=== PATIENT | female | born 1940 | race Caucasian/White ===

== ENCOUNTER 2020-08-01 17:12 | Emergency (ER) | payer MEDICARE, SELFPAY ==
[2020-08-01 17:23] VITALS: BP 118/104; PULSE 83; RESP 22; TEMP 36.7; O2SAT 93
--- NOTE | 2020-08-01 17:40 | ED.FEMALEGU ---
HPI - Female Genitourinary General Chief complaint: Urogenital-Female Stated complaint: Bladder infection Time Seen by Provider: 08/01/20 17:33 Source: patient and RN notes reviewed Mode of arrival: ambulatory Limitations: no limitations History of Present Illness HPI Narrative: Patient presents today complaining of a 2-day history of low back pain and urinary frequency. Denies dysuria, hematuria, abdominal pain. Reports history of frequent UTI. States her last UTI was a few months ago. Patient is chronically ill and Is on many medications. She does not have her allergy list and does not know any of her allergies. She does note that when she gets a UTI she is normally put on Macrobid, Because they have tried other medications in the past and this is the only one that works. MD elicited complaint: UTI Related Data Home Medications Medication Instructions Recorded Confirmed albuterol sulfate 2 puff INHALATION QID 08/01/20 08/01/20 buspirone 15 mg PO BID 08/01/20 08/01/20 furosemide 40 mg PO DAILY 08/01/20 08/01/20 gabapentin 300 mg PO TID 08/01/20 08/01/20 insulin lispro 8 unit SUBCUT ONCE 08/01/20 08/01/20 levothyroxine 125 mcg PO DAILY 08/01/20 08/01/20 losartan 100 mg PO DAILY 08/01/20 08/01/20 metformin 1,000 mg PO BID 08/01/20 08/01/20 metolazone 2.5 mg PO DAILY 08/01/20 08/01/20 metoprolol tartrate 50 mg PO DAILY 08/01/20 08/01/20 pantoprazole 40 mg PO HS 08/01/20 08/01/20 sertraline 100 mg PO DAILY 08/01/20 08/01/20 simvastatin 20 mg PO DAILY 08/01/20 08/01/20 theophylline 300 mg PO Q12H 08/01/20 08/01/20 torsemide 20 mg PO QAM 08/01/20 08/01/20 trazodone 150 mg PO HS 08/01/20 08/01/20 Allergies Allergy/AdvReac Type Severity Reaction Status Date / Time No Known Allergies Allergy Verified 08/01/20 17:33 Review of Systems Review of Systems: Narrative: CONSTITUTIONAL: Denies body aches, fever, chills, or sweats. EYES: Denies visual changes, redness, or discharge. ENT: Denies rhinorrhea, congestion, sore throat, or otalgia. CARDIOVASCULAR: Denies chest pain, palpitations, or edema. RESPIRATORY: Denies cough or dyspnea. GASTROINTESTINAL: Denies abdominal pain, nausea, vomiting, or diarrhea. GENITOURINARY: Denies dysuria or hematuria. +Frequency SKIN: Denies rash, itching, or wounds. MUSCULOSKELETAL: Denies joint pain, or myalgia. +Low back pain NEUROLOGIC: Denies headache, numbness, tingling, or weakness. PSYCH: Denies depression or anxiety. [facility] Past Medical History Medical History (Updated 08/01/20 @ 18:19 by Kristin Wahl, [facility], ) Anxiety COPD (chronic obstructive pulmonary disease) Diabetes GERD (gastroesophageal reflux disease) Hyperlipidemia Hypothyroidism Surgical History Surgical History (Updated 08/01/20 @ 18:19 by Kristin Wahl, [facility], ) H/O: hysterectomy History of mastectomy Family History Family History (Updated 12/21/11 @ 13:54 by DOCTOR UNKNOWN) Other Family history of malignant neoplasm of male breast Social History Social History Smoking status: Never smoker Alcohol intake: never Comments At time of signature, I have reviewed and agree with nursing past medical, surgical, social and family history unless otherwise noted. Please see nursing chart for further information. There is no relevant family history pertinent to the presenting complaint Exam Narrative: Exam Narrative: GENERAL: Chronically ill-appearing, Over-nourished, Ambulates with a walker. Wears home oxygen. HEAD: Normocephalic, atraumatic. EYES: EOMI. No redness or drainage. Conjunctivae normal. ENT: Mucous membranes pink and moist. NECK: Normal AROM. Supple. No lymphadenopathy. CHEST: Diminished in the bilateral bases. Audible wheezes. HEART: Regular rate and rhythm. No murmur appreciated. Normal peripheral pulses. ABDOMEN: Soft, nontender, nondistended, normal active bowel sounds. EXTREMITIES: Normal range of motion. No edema. SKIN: Warm, dry, no rash. Capillary refill no
== END 2020-08-01 17:48 | disposition home or self-care (01) ==
PROVIDERS: Emergency Provider Nurse Practitioner; PCP Internal Medicine
DX: N30.00 Acute cystitis without hematuria (principal); F41.9 Anxiety disorder, unspecified; E11.9 Type 2 diabetes mellitus without complications; J44.9 Chronic obstructive pulmonary disease, unspecified; E78.5 Hyperlipidemia, unspecified; E03.9 Hypothyroidism, unspecified; Z90.10 Acquired absence of unspecified breast and nipple; K21.9 Gastro-esophageal reflux disease without esophagitis
CPT/HCPCS: 81003; 87077; 87086; 87088; 87186; 99213; G0463